=== PATIENT | male | born 1950 | race Two or more races ===

== ENCOUNTER 2025-04-17 22:37 | Emergency (ER) | payer MEDICAID, OTHER ==
[~2025-04-17] VITALS: Ht 185.4 cm; Wt 111.8 kg
[2025-04-17 23:49] LABS: Urine Bacteria None Seen /hpf (None Seen)
[2025-04-17 23:57] LABS: Urine Blood 3+ /uL (Negative); Urine Clarity Turbid (Clear); Urine Color Light-Red (Yellow); Urine Protein, UAD 1+ (Negative); Urine Specific Gravity 1.009 (1.001-1.035); Urine Squamous Epithelial Cell None Seen /hpf (<5); Urine Urobilinogen Normal (Negative); Urine WBC 739 /HPF (0-3)
--- NOTE | 2025-04-18 01:58 | DVH ---
SCROTAL ULTRASOUND CLINICAL HISTORY: Testicular swelling bilaterally COMPARISON: None TECHNIQUE: Grayscale, color-flow, and spectral Doppler ultrasound of the scrotum and its contents was performed.. FINDINGS: Right testis: Measures approximately 3.7 x 2.9 x 3.1 cm. Small intraparenchymal cyst measuring approx imately 4 mm in diameter. Normal blood flow and spectral analysis. Left testis: Measures approximately 4.3 x 3.1 by 3.0 cm. No discrete, sizable parenchymal lesions naa ntified. Normal blood flow on spectral analysis. Epididymides: Right epididymal cyst measuring approximately 1.5 cm in diameter. Hydrocele: Large bilateral hydrocele. Other: Apparent extratesticular cyst involving the right scrotum is noted. This measures approximate ly 5.3 cm in diameter. IMPRESSION: No sonographic evidence of testicular torsion at this time. Large bilateral hydrocele. Large right scrotal cyst which appears extratesticular. This may represent a scrotal tunical cyst. Re commend urological follow-up. Small right intraparenchymal testicular cyst measuring approximately 4 mm in diameter. Right epididymal cyst measuring approximately 1.5 cm in diameter.
[2025-04-18] MEDS ORDERED: HYDR-4902 PO (02:08)
[2025-04-18] MEDS ORDERED: LEVO500T91 PO (02:08)
--- NOTE | 2025-04-18 02:09 | ED.PDOC ---
General HPI Comments Patient is a pleasant but morbidly obese 74-year-old male who arrives the ED today for evaluation of urinary discomfort and testicular swelling concerns. Patient has a long history of urinary issues in his had a catheter installed multiple times due to BPH concerns. Patient has been catheter three for several weeks, but states that he is now having urinary discomfort as well as testicular swelling. Patient denies any fever nausea or vomiting. Vital signs were stable on arrival. Chief Complaint: Urinary Time Seen by MD: 22:40 Reviewed notes: Nurses Notes Information Source: Patient Mode of Arrival: Ambulatory Severity: Moderate Timing: Weeks Duration: Intermittent Prehospital treatment: None Onset: Spontaneous Symptoms: Dysuria, Other (Bilateral testicular swelling) Location male: R Scrotum, L Scrotum associated signs and symptoms: Dysuria Past Medical History PAST MEDICAL HISTORY: Denies Past Medical History (Other): History of BPH causing bladder outlet obstruction. Surgical History: Denies all surgeries Family History Family History: Reviewed,noncontributory to illness, No family hx of Cancer, No family hx of DM, No family hx of Heart lorelei, No family hx of HTN, No family hx ofKidney lorelei, No family hx of Liver lorelei, No family hx of Lung lorelei, No family hx of Stroke Social History Smoker: Non-Smoker Alcohol: Denies ETOH Use Drugs: Denies Drug Use Lives In: Home Constitutional: denies: chills, diaphoresis, fatigue, fever, malaise, sweats, weakness, others EENTM: denies: blurred vision, double vision, ear bleeding, ear discharge, ear drainage, ear pain, ear ringing, eye pain, eye redness, hearing loss, mouth pain, mouth swelling, nasal discharge, nose bleeding, nose congestion, nose pain, photophobia, tearing, throat pain, throat swelling, voice changes, others Respiratory: denies: cough, hemoptysis, orthopnea, SOB at rest, shortness of breath, SOB with excertion, stridor, wheezing, others Cardiovascular: denies: chest pain, dizzy spells, diaphoresis, Dyspnea on exertion, edema, irregular heart beat, left arm pain, lightheadedness, palpitations, PND, syncope, others Gastrointestinal: denies: abdomen distended, abdominal pain, blood streaked bowels, constipated, diarrhea, dysphagia, difficulty swallowing, hematemesis, melena, nausea, poor appetite, poor fluid intake, rectal bleeding, rectal pain, vomiting, others Genitourinary: reports: dysuria, testicle swelling; denies: burning, flank pain, frequency, hematuria, incontinence, penile discharge, penile sore, pain, testicle pain, urgency, others Neurological: denies: dizziness, fainting, headache, left sided numbness, left sided weakness, numbness, paresthesia, pre-existing deficit, right sided numbness, right sided weakness, seizure, speech problems, tingling, tremors, weakness, others Musculoskeletal: denies: back pain, gout, joint pain, joint swelling, muscle pain, muscle stiffness, neck pain, others Integumetry: denies: bruises, change in color, change in hair/nails, dryness, laceration, lesions, lumps, rash, wounds, others Allergic/Immunocompromised: denies: Difficulty Healing, Frequent Infections, Hives, Itching, others Hematologic/Lymphatic: denies: anemia, blood clots, easy bleeding, easy bruising, swollen glands, others Endocrine: denies: excessive hunger, excessive sweating, excessive thirst, excessive urination, flushing, intolerance to cold, intolerance to heat, unexplained weight gain, unexplained weight loss, others Psychiatric: denies: anxiety, bipolar disorder, depression, hopeless, panic disorder, schizophrenia, sleepless, suicidal, others Physical Exam General Appearance: Moderate Distress ([id number] distress due to urinary discomfort and testicular swelling.), Obese HEENT: Normal ENT Inspection, Pharynx Normal, TMs Normal Neck: Full Range of Motion, Non-Tender, Normal, Normal Inspection Respiratory: Chest Non-Tender, Lungs Clear, No Accessory Muscle Use, No Respiratory Distress, Normal Breath Sounds Cardiovascular: No Edema, No JVD, No Murmur, No Gallop, Normal Peripheral Pulses, Regular Rate/Rhythm Breast Exam: Deferred Gastrointestinal: No Organomegaly, Non Tender, No Pulsatile Mass, Normal Bowel Sounds, Soft Genitalia: Other (Bilateral testicular swelling appreciated with tenderness throughout. No erythema or edema noted. Unable to appreciate any epididymitis.) Pelvic: Deferred Rectal: Deferred Extremities: No calf tenderness, Normal capillary refill, Normal inspection, Normal range of motion, Non-tender, No pedal edema Neurologic: Alert, No Motor Deficits, Normal Affect, Normal Mood, No Sensory Deficits Cerebellar Function: Normal Reflexes: Normal Skin: Dry, Normal Color, Warm Lymphatic: No Adenopathy Was a procedure done? Was a procedure done?: No Differential Diagnosis Kidney stone (Female): N/A Urinary Problem (Male): Other (Urinary tract infection, hydrocele, epididymitis, testicular torsion) X-Ray, Labs, Meds, VS Vital Signs Date Time Temp Pulse Resp B/P (MAP) Pulse Ox O2 Delivery O2 Flow Rate FiO2 04/17/25 23:18 97.6 67 20 129/71 (90) 99 97.6 Lab Test 04/17/25 23:35 Range/Units Urine Color Light-red Yellow Urine Clarity Turbid H Clear Urine pH 6.0 5.0-9.0 Urine Specific [place] 1.009 1.001-1.035 Urine Protein 1+ H Negative Urine Ketones Negative Negative Urine Blood 3+ H Negative /uL Urine Nitrite Negative Negative Urine Bilirubin Negative Negative Urine Urobilinogen Normal Negative mg/dL Urine Leukocyte Esterase 1+ Negative /uL Urine RBC 2190 0 - 3 /hpf Urine Microscopic WBC 739 H 0-3 /HPF Urine Squamous Epithelial Cells None seen <5 /hpf Urine Bacteria None seen None Seen /hpf Urine Glucose Normal Normal mg/dL X-Ray, Labs, Meds, VS Comment All studies performed the ED were evaluated by me personally. Urinalysis confirmed a urinary tract infection. CT of the scrotum was unremarkable for any testicular torsion, but did confirm large bilateral hydrocele. Additional findings of the large right scrotal cyst was noted. Patient has been advised to utilize antibiotics as directed and follow up with primary care provider for discussions related to testicular ultrasound findings. Time of 1ST Reevaluation: 02:06 Reevaluation 1ST: Improved Consultation: PCP Patient Education/Counseling: Diagnosis, Treatment Family Education/Counseling: Diagnosis, Treatment Departure 1 Departure Time of Disposition: 02:07 Impression: Primary Impression: UTI (urinary tract infection) Additional Impression: Hydrocele of testis Disposition: 01 HOME / SELF CARE / HOMELESS Condition: Stable Additional Instructions: Advised patient utilize antibiotics as directed until completion as well as pain medication as needed. Patient should follow up with his primary care provider for discussions related to his testicular ultrasound findings. e-Prescriptions Hydrocodone-Acetaminophen (Hydrocodone Bitartrate/AC 5-325 mg) 1 Tab Tab 1 TAB PO Q6HP PRN, #15 TAB Prov: JAMAL GARRETT PAC 04/18/25 Levofloxacin Hemihydrate (LEVAQUIN 500 MG) 500 Mg Tab 1 TAB PO DAILY for 9 Days, #9 TAB Prov: JAMAL GARRETT PAC 04/18/25 Discharged With: Self, Friend Critical Care Note Critical Care Time?: No Stability Stability form required: No Heart Score Heart Score: Heart Score Response (Comments) Value History N/A 0 EKG N/A 0 Age N/A 0 Risk Factors N/A 0 Troponin N/A 0 Total 0 JAMAL GARRETT PAC Apr 18, 2025 02:09
[2025-04-18] MEDS: levoFLOXacin 250 MG TAB PO ONE (02:10)
[2025-04-18] MEDS: HYDROcodone-ACET 5/325MG TAB PO ONE (02:19)
[2025-04-18] MEDS: IBUPROFEN 800 MG TAB PO ONE (02:20)
[2025-04-18 02:23] VITALS: BP 128/70; PULSE 66; RESP 22; TEMP 97.6
[2025-04-18 02:24] VITALS: O2SAT 98
== END 2025-04-18 02:27 | disposition home or self-care (01) ==
LOC: ER 22:37
DX: N39.0 Urinary tract infection, site not specified (principal); N43.3 Hydrocele, unspecified
CPT/HCPCS: 76870; 81001